=== PATIENT | female | born 1950 | race Caucasian/White ===

== ENCOUNTER 2018-12-11 11:10 | Outpatient (CLI) | payer MEDICARE, MEDICAID ==
[2018-12-12] MEDS ORDERED: REGADENOSON 0.4 MG/5 ML SYRINGE ONE (13:15)
== END 2018-12-11 23:59 | disposition home or self-care (01) ==
LOC: RAD 11:10
PROVIDERS: ATTEND Internal Medicine Cardiovascular Disease
DX: Z01.810 Encounter for preprocedural cardiovascular examination (principal); F17.210 Nicotine dependence, cigarettes, uncomplicated
CPT/HCPCS: 76706; 78452; 93017; A9502; J2785